=== PATIENT | female | born 1990 | race Caucasian/White ===

== ENCOUNTER 2021-09-20 21:35 | Emergency (ER) | payer OTHER, SELFPAY ==
[2021-09-20 21:53] VITALS: BP 139/64; PULSE 91; RESP 16; TEMP 37.1; O2SAT 98; BMI 28.3
--- NOTE | 2021-09-20 22:00 | PC.NURSE ---
pt hand wrapped with dsd. no active bleeding.
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
[2021-09-20] MEDS: Lidocaine HCl 2 % MPF 5 ML VIAL SUBCUT (22:57)
[2021-09-20] MEDS: Diphth,Pertus(ACell),Tet Adult 0.5 ML SYRINGE IM (23:13)
== END 2021-09-20 23:24 | disposition home or self-care (01) ==
PROVIDERS: Emergency Provider Internal Medicine
DX: S61.411A Laceration without foreign body of right hand, initial encounter (principal); W26.0XXA Contact with knife, initial encounter; Y93.89 Activity, other specified; Y92.9 Unspecified place or not applicable; Y99.9 Unspecified external cause status
CPT/HCPCS: 12001; 90471; 90715; 99283; 99284